=== PATIENT | male | born 1940 | race Caucasian/White ===

== ENCOUNTER 2016-09-09 11:56 | Emergency (ER) | payer MEDICARE, BC ==
[~2016-09-09] VITALS: Ht 170.2 cm; Wt 90.0 kg
[2016-09-09 12:04] VITALS: BP 137/81; PULSE 77; RESP 16; TEMP 97.5
[2016-09-09] MEDS ORDERED: GABA100C4 PO (12:35)
[2016-09-09] MEDS ORDERED: PRAV10TA PO (12:35)
[2016-09-09] MEDS ORDERED: METF1000 PO (12:35)
[2016-09-09] MEDS ORDERED: LIDO5DIS35 TOPICAL (12:35)
[2016-09-09] MEDS ORDERED: AMBI10TA PO (12:35)
[2016-09-09] MEDS ORDERED: ISOS10TA3 PO (12:35)
[2016-09-09] MEDS ORDERED: CARV12.52 PO (12:35)
[2016-09-09] MEDS ORDERED: VENL100T PO (12:35)
[2016-09-09] MEDS ORDERED: ASPI1TAB69 PO (12:35)
[2016-09-09] MEDS ORDERED: LORA-392 PO (12:35)
[2016-09-09] MEDS ORDERED: GLIP10TA6 PO (12:35)
--- NOTE | 2016-09-09 12:40 | PD ---
HPI Chief Complaint: Injury Time Seen by Provider: 12:39 Travel History International Travel<30 days: No Contact w/Intl Traveler<30days: No Traveled to known affect area: No History of Present Illness HPI 76 year old male with PMH of DM presents to the ED for evaluation of 5 day history of right leg pain. Onset after falling while getting into the tub. He states that the right reed landed on the edge of the tub. He complains of 6/10 pain with flexion of the toes. He denies numbness, tingling, weakness, limitations to range of motion of the leg. He has been ambulatory and able to play golf, work on a boat in the interim. He treated at home with Tylenol, lidocaine patch and intermittent icing with no improvement of the pain. PFSH Past Medical History Arthritis: Yes Anxiety: Yes Depression: Yes Cardiac Catheterization: Yes High Cholesterol: Yes Coronary Artery Disease: Yes Diabetes: Yes Patient Takes Glucophage: Yes Gastrointestinal Disorders: Yes (IBS) Hypertension: Yes Medical other: Yes (PERIPHERAL NUROPATHY) Tetanus Vaccination: < 5 Years Influenza Vaccination: Yes Past Surgical History Appendectomy: Yes Cardiac Surgery: Yes Coronary Artery Bypass Graft: Yes (2011) Coronary Stent: Yes Social History Alcohol Use: Yes (~2 BEERS WEEKLY) Tobacco Use: No Substance Use: No Allergies-Medications (Allergen,Severity, Reaction): Coded Allergies: No Known Allergies (Unverified , 09/09/16) Reported Meds & Prescriptions Reported Meds & Active Scripts Active Reported Lidoderm Patch 12 HR (Lidocaine) 5% Patch 1 Patch TOPICAL DAILY PRN Remove patch after 12 hours Pravastatin 10 Mg Tab Unknown Dose PO DAILY Effexor (Venlafaxine HCl) 100 Mg Tab 100 Mg PO DAILY Ativan (Lorazepam) 0.5 Mg Tab 0.5 Mg PO DAILY PRN Isosorbide Mononitrate 10 Mg Tab Unknown Dose PO DIRECTED Take 2 doses 7 hours apart. Aspirin 81 Mg Tabdr 81 Mg PO DAILY Ambien (Zolpidem Tartrate) 10 Mg Tab 10 Mg PO HS PRN Carvedilol 12.5 Mg Tab 12.5 Mg PO BID Metformin (Metformin HCl) 1,000 Mg Tab 1,000 Mg PO BIDPC With meals Glipizide 10 Mg Tab 10 Mg PO DAILY Take 30 minutes before a meal Gabapentin 100 Mg Cap 100 Mg PO BID Review of Systems Except as stated in HPI: all other systems reviewed are Neg Physical Exam Narrative GENERAL: Well-nourished, well-developed nontoxic appearing white male in no acute distress. SKIN: Warm and dry. HEAD: Normocephalic. EYES: No scleral icterus. No injection or drainage. NECK: Supple, trachea midline. No JVD or lymphadenopathy. CARDIOVASCULAR: Regular rate and rhythm without murmurs, gallops, or rubs. RESPIRATORY: Breath sounds equal bilaterally. No accessory muscle use. GASTROINTESTINAL: Abdomen soft, non-tender, nondistended. MUSCULOSKELETAL: No cyanosis, or edema. Focused right lower extremity exam: 2+ DP pulse. There is a 3-4 cm tender, edematous ecchymosis on the anterior portion of the distal third of the right tib-fib. Squeeze test positive. No tenderness to palpation of the malleoli, base of the fifth or the navicular. Patient retains full, active, painless ROM of the ankle and knee. Sensation intact to light touch distally. Cap refill less than 2 seconds. BACK: Nontender without obvious deformity. No CVA tenderness. Data Data Last Documented VS Vital Signs Date Time Temp Pulse Resp B/P Pulse Ox O2 Delivery O2 Flow Rate FiO2 09/09/16 12:28 Room Air 09/09/16 12:04 97.5 77 16 137/81 Orders Tibia/Fibula (Ap/Lat) (09/09/16 12:46) Ice/Cold Pack (09/09/16 12:46) MDM Medical Decision Making Medical Screen Exam Complete: Yes Emergency Medical Condition: Yes Differential Diagnosis Contusion versus musculoskeletal pain versus less likely fracture versus other Narrative Course 76 year old male with PMH of DM presents to the ED for evaluation of 5 day history of right leg pain. Onset after falling while getting into the tub. He states that the right reed landed on the edge of the tub. He complains of 6/10 pain with flexion of the toes. He denies numbness, tingling, weakness, limitations to range of motion of the leg. He has been ambulatory and able to play golf, work on a boat in the interim. He treated at home with Tylenol, lidocaine patch and intermittent icing with no improvement of the pain. Vitals reviewed. Physical exam reveals a 3-4 cm tender, edematous ecchymosis on the anterior portion of the distal third of the right tib-fib. Squeeze test positive. Otherwise unremarkable. Ice pack was applied. X-rays reveal no acute bony injury per radiology read. This is contusion. Patient was instructed to rest, ice, elevate the extremity, use [id number] medications as needed for pain, follow-up with primary care provider. He indicated understanding of these instructions and was amenable to plan of care. He is stable and discharged home. Diagnosis Primary Impression: Contusion of right lower leg, initial encounter Referrals: Primary Care Physician Patient Instructions: Contusion in Adults (ED), General Instructions Additional Instructions: Rest, ice, elevate the extremity. Apply ice no longer than 10-15 minutes per hour a few times a day. Continue symptomatic treatment with ibuprofen or Tylenol as described on the bottle. Return to normal, gentle activity as tolerated. No running, jumping activities for the next few weeks. Follow up with orthopedist or your primary care provider next week Return to the ED for any urgent or emergent medical condition. Disposition: 01 DISCHARGE HOME Condition: Stable Monica Loyd Sep 09, 2016 12:40
--- NOTE | 2016-09-09 13:03 | RADHPO ---
EXAM DATE/TIME: 09/09/2016 12:50 [facility] COMPARISON: No previous studies available for comparison. INDICATIONS : Right lower leg pain after fall. MEDICAL HISTORY : None. SURGICAL HISTORY : None. ENCOUNTER: Initial ACUITY: 4 - 6 days PAIN SCORE: 6/10 LOCATION: Right middle tibia FINDINGS: Two view examination of the right tibia demonstrates no evidence of fracture or dislocation. Bony mi neralization is normal. The soft tissue structures are intact. CONCLUSION: Negative for fracture or dislocation. Follow up in 7-10 days is suggested if symptoms persist. Kvng Rubio MD FACR on September 09, 2016 at 13:01 Board Certified Radiologist. This report was verified electronically.
== END 2016-09-09 13:29 | disposition home or self-care (01) ==
LOC: PHEFT 11:56
DX: S80.11XA Contusion of right lower leg, initial encounter (principal); E78.00 Pure hypercholesterolemia, unspecified; E11.9 Type 2 diabetes mellitus without complications; I10 Essential (primary) hypertension; W18.2XXA Fall in (into) shower or empty bathtub, initial encounter; Y93.E1 Activity, personal bathing and showering; Y92.002 Bathroom of unspecified non-institutional (private) residence as the place of occurrence of the external cause
CPT/HCPCS: 73590; 99283